=== PATIENT | female | born 1930 | race African-American/Black ===

== ENCOUNTER 2017-05-25 21:14 | Inpatient (IN) | payer MEDICARE, MEDICAID ==
[2017-05-25] MEDS ORDERED: Aspirin 300 MG Suppository ONE (22:05)
[2017-05-25 22:47] LABS: Troponin I 0.083 ng/mL (< 0.028)
[2017-05-25] MEDS ORDERED: Dextrose 5 %-0.45 % NaCl 1,000 ML IV SCH (23:24)
[2017-05-25] MEDS ORDERED: Acetaminophen 650 MG Suppository PR PRN (23:24)
[2017-05-25] MEDS ORDERED: Nitroglycerin 0.4 MG TAB (25 Tab Bottle) SL PRN (23:24)
[2017-05-25] MEDS ORDERED: Bisacodyl 10 MG SUPP PR PRN (23:24)
[2017-05-25] MEDS ORDERED: Labetalol HCl 100 MG/20 ML VIAL SLOW IVP PRN (23:24)
[2017-05-25] MEDS ORDERED: hydrALAZINE 20 MG/ML VIAL SLOW IVP PRN (23:24)
[2017-05-25] MEDS ORDERED: Eucerin (Mineral Oil/Petrolatum,White) 30 gm Jar TOP PRN (23:24)
[2017-05-25] MEDS ORDERED: Multivit, Adult Inj 10 ML VIAL IV SCH (23:24)
[2017-05-25] MEDS ORDERED: Artificial Tears 18 DROP/0.9 ML EA EYE PRN (23:24)
[2017-05-25] MEDS ORDERED: Fleet Enema 133 ML BOT PR PRN (23:24)
[2017-05-25] MEDS ORDERED: Sodium Chloride 0.65% Nasal 44 ML BOT EA NARE PRN (23:24)
[2017-05-25] MEDS ORDERED: Chloraseptic Spray 180 ml Bottle PO PRN (23:24)
[2017-05-25] MEDS ORDERED: Ondansetron HCl/PF 4 MG/2 ML Vial IVP PRN (23:24)
[2017-05-25] MEDS ORDERED: HumaLOG 300 UNITS/3 ML VIAL SC PRN ×2 (23:29)
[2017-05-25] MEDS ORDERED: Dextrose 5% in Water 1,000 ML IV PRN (23:29)
[2017-05-25] MEDS ORDERED: Dextrose 50% Abboject 50 ML SYRINGE SLOW IVP PRN (23:29)
[2017-05-25] MEDS ORDERED: Multivitamins, Adult 10 ML in Dextrose 5 %-0.45 % NaCl 1,000 ML IV SCH (23:59)
[2017-05-26] MEDS: cefTRIAXone\\ROCEPHIN 1 GM in Syringe 10 ML SLOW IVP SCH ×2 (00:10→23:35)
--- NOTE | 2017-05-26 00:10 | HP ---
PRIMARY CARE PHYSICIAN: Dr. Hugo Collado. REASON FOR ADMISSION: Metabolic encephalopathy, urinary tract infection, and dehydration, hyperosmol arity. HISTORY OF PRESENT ILLNESS: An 86-year-old female who lives at home with the family. She has advanc ed dementia for the last 2 weeks. Patient is declining. She was not eating or drinking. She was be coming more and more lethargic. Patient is mostly bed-bound for the last several days; before that, patient was able to ambulate with support only, but the patient was able to feed by herself, but for the last 2 weeks, she is not able to eat or drink enough and she is becoming more and more lethargic and declining. This patient unfortunately cannot provide any history, but patient's medical power of commercial litigation attorney, 2 daughters present who provided most of the history. She was initially evaluated at [facility] where patient was found with hypernatremia , hyperchloremia, leukocytosis, urinary tract infection and she had elevated troponin and that is why she was sent to our emergency room for further evaluation and treatment. PAST MEDICAL HISTORY: Alzheimer's dementia, diabetes type 2, hypertension, chronic physical decondit ioning. PAST SURGICAL HISTORY: Unfortunately, patient is not able to provide any surgical history and family member does not have any clue as well. PAST PSYCHIATRIC HISTORY: No major psychiatric problems other than just dementia. SOCIAL HISTORY: Patient lives at home with family. No history of tobacco, alcohol or illicit drug a buse. FAMILY HISTORY: No strong family history of premature coronary artery disease, stroke or cancer. REVIEW OF SYSTEMS: All review of systems tried to review with the patient, but unable to review at t his point because of advanced dementia and lethargic. ALLERGIES: No known drug allergies. CURRENT HOME MEDICATIONS: Patient is not taking any prescribed or non-prescribed medication at this point. EMERGENCY ROOM COURSE: This patient was given vancomycin, Zosyn, and IV fluid at [facility]. Patient is receiving Levaquin in our emergency room. Patient is also received aspirin 300 mg rectally. PHYSICAL EXAMINATION: VITAL SIGNS: Currently, blood pressure 182/122, pulse 83, respiratory rate 17, temperature 98.7, sat uration 99% on room air, weight 72.6 kilograms. GENERAL: Patient is completely lethargic, alert, oriented x1 only, hypertensive, does not follow the command. HEENT: Normocephalic, atraumatic. Eyes: Pupils are round, reactive to light. Extraocular muscles are intact. ENT: Dry mucous membranes. Poor dentition. No pharyngeal erythema, no exudates. NECK: Supple, no JVD, no meningeal signs of irritation. LUNGS: Clear to auscultation without any rhonchi or rales. CARDIAC: S1, S2 regular without any murmur, no gallop, no rub. ABDOMEN: Soft, bowel sounds present, no tenderness, or grimace noted on deep palpation. No suprapub ic tenderness. No organomegaly, no distention. Bowel sounds present. No peritoneal sign. BACK: No CVA tenderness. No point tenderness. EXTREMITIES: Upper extremity passive movement of all joints are normal. Lower extremity, passive mo vement of all joints are normal. Good distal pulsation. SKIN: No skin rash. HEMATOLOGICAL: No lymphadenopathy. NEUROLOGIC: Patient is only alert, oriented x1. Unable to perform neurological examination because of lethargy and dementia. SIGNIFICANT LABS: Chest x-ray based on my review, no acute cardiopulmonary process. CBC: WBC 15.7, hemoglobin 15.4, platelets 198. BMP: Sodium 150, potassium 4.5, chloride 112, carbon dioxide 25, a nion gap 18, BUN 23, creatinine 0.91, glucose 223, calcium 10.7, lactic acid 3.7. LFT: AST 49, ALT 41, alkaline phosphatase 98, albumin 3.3. TSH 0.81, CK-MB 7.8, troponin 0.091 and then 0.083. Urina lysis, bacteria 4+, and cloudy urine. ASSESSMENT AND PLAN: 1. Acute metabolic encephalopathy likely due to underlying hyperosmolality, hypernatremia, and dehyd ration as well as on top of Alzheimer's dementia or may be related with urinary tract infection. 2. Urinary tract infection. The patient's urinalysis is cloudy. She has leukocytosis. At this poi nt, we will continue to treat her with levofloxacin and Rocephin and we will follow up on culture res ult. 3. Dehydration, likely due to poor p.o. intake. Patient will need hydration with IV fluid and will monitor labs. 4. Hyperosmolality with hypernatremia and hyperchloremia. Patient will be given dextrose with half normal saline at 120 mL per hour and will repeat BMP tomorrow. 5. Elevated troponin, likely due to demand ischemia. We will check total CK level as well to rule o ut any rhabdomyolysis. We will do total of 3 troponin. We will obtain echocardiography. We will mo braulio on telemetry floor. We will continue aspirin 100 mg per rectally. 6. Oropharyngeal dysphagia. This patient is currently not able to take anything by mouth as she is not safe for p.o. intake at this point. We will keep her n.p.o. We will consult Speech Therapy for evaluation. I spoke with the family member about the possible need of PEG tube placement to prevent recurrent problem, but they are going to think about that necessity with the patient. 7. Protein-calorie malnutrition, likely due to poor p.o. intake. Patient will need nutritional supp lement. Eventually, this patient may need a PEG tube placement because of her advanced Alzheimer dem entia. 8. Lactic acidosis, likely due to dehydration and possible urinary tract infection. We will continu e with antibiotic therapy and we will repeat lactic acid level tomorrow. 9. Hypertension. We will continue with nitropatch q.8 hourly if blood pressure is remaining high an d we will use p.r.n. hydralazine and labetalol p.r.n. basis. 10. Deep venous thrombosis prophylaxis. Lovenox 30 mg subcutaneously daily. 11. Gastrointestinal prophylaxis. Pepcid 20 mg IV b.i.d. 12. CODE STATUS. I spoke with the patient's both daughters who are present at bedside in the emerge ncy room and confirmed DNR status. DISPOSITION PLAN: Based on clinical course. We are expecting patient's stay in the hospital more th an 2 midnights. Plan of care discussed with the patient and family member at bedside in the emergenc y room.
[2017-05-26 03:24] LABS: Lactic Acid 2.6 mmol/L (0.5-2.2)
[2017-05-26 03:34] LABS: ALT (SGPT) 37 U/L (8-55); AST (SGOT) 40 U/L (5-34); Albumin 2.7 g/dL (3.4-4.8); Alkaline Phosphatase 79 U/L (40-150); Anion Gap 14 mmol/L (10-20); BUN (Urea Nitrogen) 20 mg/dL (9.8-20.1); Bilirubin, Total 0.5 mg/dL (0.2-1.2); CK (CPK) 311 U/L (29-168); Calc. Creatinine Clearance 43 mL/min (70-130); Calcium 9.7 mg/dL (7.8-10.44); Carbon Dioxide 22 mmol/L (23-31); Chloride 115 mmol/L (98-107); Estimated GFR-MDRD 78; Globulin 2.6 g/dL (2.4-3.5); Glucose 208 mg/dL (83-110); Potassium 4.8 mmol/L (3.5-5.1); Protein, Total 5.3 g/dL (6.0-8.3); Sodium 146 mmol/L (136-145)
[2017-05-26 05:49] LABS: #Lymphocytes 0.9 thou/uL (1.20-3.40); #Monocytes 1.1 thou/uL (0.11-0.59); #Neutrophils 9.9 thou/uL (1.40-6.50); %Basophils 0.2 % (0.0-1.0); %Eosinophils 0.3 % (0.0-10.0); %Lymphocytes 7.4 % (21.0-51.0); %Monocytes 9.4 % (0.0-10.0); %Neutrophils 82.6 % (42.0-75.0); Mean Corpuscular HGB CONC 30.6 g/dL (32.0-36.0); Mean Corpuscular Hemoglobin 28.8 pg (27.0-31.0); Mean Corpuscular Volume 94.2 fl (81.0-99.0); Mean Platelet Volume 8.9 fL (7.4-10.4); Platelet Count 162 thou/uL (130-400); Red Blood Cell (RBC) Count 4.53 mill/uL (4.20-5.40)
[2017-05-26 06:07] LABS: Lactic Acid 2.3 mmol/L (0.5-2.2)
[2017-05-26] MEDS: Nitroglycerin 2% Ointment 1 INCH/1 GM Packet TOP SCH ×3 (06:44→21:15)
[2017-05-26] MEDS: Dextrose 5 %-0.45 % NaCl 1,000 ML IV SCH ×2 (06:48→21:16)
[2017-05-26 07:11] LABS: Folate (Folic Acid) 7.6 ng/mL (7.0-31.4)
[2017-05-26] MEDS: Aspirin 300 MG Suppository PR SCH (10:05)
[2017-05-26] MEDS: Famotidine/PF 20 mg/2ml Vial SLOW IVP SCH ×2 (10:30→21:15)
--- NOTE | 2017-05-26 14:39 | PDOC.PN ---
- Subjective Encounter Start Date: 05/26/17 Encounter Start Time: 14:37 Subjective: daughter at bedside reports that that she is more awake and alert - Objective Resuscitation Status: Resuscitation Status DNR:Do Not Resuscitate MAR Reviewed: Yes Vital Signs & Weight: Vital Signs (12 hours) Temp Pulse Resp BP Pulse Ox 05/26/17 08:00 97.5 F L 62 12 126/67 100 05/26/17 04:00 96.1 F L 63 17 142/81 H 98 Weight Admit Weight 124 lb Weight 124 lb Result Diagrams: 05/26/17 05:35 05/26/17 02:59 Additional Labs: Accuchecks 05/26/17 05/26/17 05/26/17 11:39 05:42 00:35 POC Glucose 179 H 182 H 162 H Microbiology 05/25/17 18:00 Urine Straight Catheter Urine Culture - Preliminary NO GROWTH AT 12 HOURS Laboratory Tests 05/26/17 05:35 Ammonia 18 Phys Exam - Physical Examination Constitutional: NAD easily awaken.will talk non stop but falls back to sleep quickly HEENT: PERRLA, moist MMs, sclera anicteric, oral pharynx no lesions Neck: no nodes, no JVD, supple, full ROM Respiratory: no wheezing, no rales, no rhonchi, clear to auscultation bilateral Cardiovascular: RRR, no significant murmur Gastrointestinal: soft, non-tender, no distention, positive bowel sounds Musculoskeletal: no edema, pulses present Neurological: moves all 4 limbs Psychiatric: normal affect Skin: no rash Dx/Plan (1) Acute metabolic encephalopathy Code(s): G93.41 - METABOLIC ENCEPHALOPATHY Status: Acute Comment: improving (2) UTI (urinary tract infection) Status: Acute Qualifiers: Urinary tract infection type: acute cystitis Hematuria presence: without hematuria Qualified Code(s): N30.00 - Acute cystitis without hematuria (3) Dehydration Code(s): E86.0 - DEHYDRATION Status: Acute (4) Hypernatremia Code(s): E87.0 - HYPEROSMOLALITY AND HYPERNATREMIA Status: Acute (5) CAD (coronary artery disease) Code(s): I25.10 - ATHSCL HEART DISEASE OF [place] CORONARY ARTERY W/O ANG PCTRS Status: Acute (6) HTN (hypertension) Code(s): I10 - ESSENTIAL (PRIMARY) HYPERTENSION Status: Acute (7) Moderate protein-calorie malnutrition Code(s): E44.0 - MODERATE PROTEIN-CALORIE MALNUTRITION Status: Acute - Plan plan discussed w/ family, PT/OT, social work associate, DVT proph w/lovenox, DVT proph w/SCDs cont IVF w D5 1/2 NS.sodium improving.monitor. -: cont empiric ABx. follow urine Cx -: OT,PT.supportive care. HD stable. -: am labs * . Review of Systems - Review of Systems Other: unable to obtain due to dementia and acute illness encephalopathy - Medications/Allergies Allergies/Adverse Reactions: Allergies Allergy/AdvReac Type Severity Reaction Status Date / Time No Known Allergies Allergy Unverified 05/25/17 23:36 Medications: Current Medications Acetaminophen (Tylenol) 650 mg [place] Q4H PRN PRN Reason: Headache/Fever or Pain Artificial Tears (Tears Naturale) 0 drop EA EYE PRN PRN PRN Reason: Dry Eyes Aspirin (Aspirin) 300 mg IL DAILY [facility] Last Admin: 05/26/17 10:05 Dose: Not Given Bisacodyl (Dulcolax) 10 mg IL Q24H PRN PRN Reason: Constipation Dextrose/Water (Dextrose 50%) 25 gm SLOW IVP PRN PRN PRN Reason: Hypoglycemia Enoxaparin Sodium (Lovenox) 30 mg SC 0900 [facility] Famotidine (Pepcid) 20 mg SLOW IVP Q12HR [facility] Glucagon (Glucagon) 1 mg IM PRN PRN PRN Reason: Hypoglycemia Hydralazine HCl (Apresoline) 10 mg SLOW IVP Q4H PRN PRN Reason: Systolic BP > 180 Levofloxacin 500 mg/ Device 100 mls @ 100 mls/hr IVPB Q24HR [facility] Ceftriaxone Sodium 1 gm/ (Syringe) 10 mls @ 120 mls/hr SLOW IVP Q24HR@2359 [facility] Last Admin: 05/26/17 00:10 Dose: 10 mls Dextrose/Water (D5w) 1,000 mls @ 0 mls/hr IV .Q0M PRN; As Directed PRN Reason: Hypoglycemia Dextrose/Sodium Chloride (D5 1/2 Ns) 1,000 mls @ 120 mls/hr IV .Q8H20M [facility] Last Admin: 05/26/17 06:48 Dose: 1,000 mls Insulin Human Lispro (Humalog) 0 units SC .MODERATE SLIDING SC PRN PRN Reason: Moderate Correctional Scale Insulin Human Lispro (Humalog) 0 units SC .BEDTIME SLIDING SC PRN PRN Reason: Bedtime Correctional Scale Labetalol HCl (Normodyne) 20 mg SLOW IVP Q4H PRN PRN Reason: Systolic BP > 180 Mineral Oil/White Petrolatum (Eucerin Cream) 0 gm TOP BIDPRN PRN PRN Reason: Dry Skin Nitroglycerin (Nitrostat) 0.4 mg SL Q5MIN PRN PRN Reason: Chest Pain Nitroglycerin (Nitro-Bid 2% Ointment) 0.5 inch TOP Q8HR [facility] Last Admin: 05/26/17 06:44 Dose: 0.5 inch Ondansetron HCl (Zofran) 4 mg IVP Q6H PRN PRN Reason: Nausea/Vomiting Phenol (Chloraseptic [place] 180 Ml Bot) 0 ml PO PRN PRN PRN Reason: Sore Throat Sodium Biphosphate/Sodium Phosphate (Fleet Enema) 133 ml IL ONE PRN PRN Reason: Constipation Stop: 05/26/17 23:25 Sodium Chloride ([place] Nasal [place] 0.65%) 0 ml EA NARE QIDPRN PRN PRN Reason: Nasal Congestion Sodium Chloride (Flush - Normal Saline) 10 ml IVF Q12HR [facility] Sodium Chloride (Flush - Normal Saline) 10 ml IVF PRN PRN PRN Reason: Saline Flush
[2017-05-26] MEDS: Enoxaparin Sodium 30 MG/0.3 ML SYRINGE SC SCH (15:01)
[2017-05-27] MEDS ORDERED: Acetaminophen 325 MG TAB PO PRN (02:34)
[2017-05-27] MEDS: Dextrose 5 %-0.45 % NaCl 1,000 ML IV SCH ×3 (02:49→17:38)
[2017-05-27] MEDS: Nitroglycerin 2% Ointment 1 INCH/1 GM Packet TOP SCH ×3 (05:19→21:15)
[2017-05-27] MEDS: Famotidine/PF 20 mg/2ml Vial SLOW IVP SCH ×2 (09:19→21:15)
[2017-05-27] MEDS: Aspirin 300 MG Suppository PR SCH (09:19)
[2017-05-27] MEDS: Enoxaparin Sodium 30 MG/0.3 ML SYRINGE SC SCH (09:19)
--- NOTE | 2017-05-27 15:15 | EKG ---
Test Reason : Blood Pressure : / mmHG Vent. Rate : 083 BPM Atrial Rate : 083 BPM P-R Int : 142 ms QRS Dur : 072 ms QT Int : 446 ms P-R-T Axes : 057 -01 028 degrees QTc Int : 524 ms Normal sinus rhythm Nonspecific T wave abnormality Prolonged QT Abnormal ECG Confirmed by GABRIELLA PATEL, GILDA ([id number]), supervising editor trailer REGI SAL ([id number]) on 05/27/2017 3:15:03 PM Referred By: Confirmed By:GILDA QUIROZ MD
--- NOTE | 2017-05-27 16:40 | PDOC.PN ---
- Subjective Encounter Start Date: 05/27/17 Encounter Start Time: 14:45 Subjective: Family reports improved status. patient makes verbal noises in response to -: some questions - Objective Resuscitation Status: Resuscitation Status DNR:Do Not Resuscitate Vital Signs & Weight: Vital Signs (12 hours) Temp Pulse Pulse Pulse Resp BP BP 05/27/17 12:00 59 L 18 05/27/17 08:24 47 L 54 L 114/53 L 120/57 L 05/27/17 08:10 97.1 F L 60 18 05/27/17 08:00 97.6 F 60 18 BP Pulse Ox 05/27/17 12:00 149/81 H 05/27/17 08:24 05/27/17 08:10 95 05/27/17 08:00 112/58 L Weight Admit Weight 124 lb Weight 132 lb I&O: 05/26/17 05/27/17 05/28/17 06:59 06:59 06:59 Intake Total 1740 Balance 1740 Result Diagrams: 05/26/17 05:35 05/26/17 02:59 Additional Labs: Accuchecks 05/27/17 05/27/17 05/27/17 11:30 06:02 00:04 POC Glucose 131 H 156 H 154 H 05/26/17 17:09 POC Glucose 140 H Phys Exam - Physical Examination Constitutional: NAD HEENT: moist MMs, sclera anicteric temporal wasting Neck: supple Respiratory: clear to auscultation bilateral Cardiovascular: RRR Gastrointestinal: soft Musculoskeletal: no edema Neurological: moves all 4 limbs Deviation from normal: dementia and altered Deviation from normal: stage 2 dq ulcer Dx/Plan (1) Acute metabolic encephalopathy Code(s): G93.41 - METABOLIC ENCEPHALOPATHY Status: Acute Comment: improving (2) CAD (coronary artery disease) Code(s): I25.10 - ATHSCL HEART DISEASE OF [place] CORONARY ARTERY W/O ANG PCTRS Status: Acute (3) Dehydration Code(s): E86.0 - DEHYDRATION Status: Acute (4) HTN (hypertension) Code(s): I10 - ESSENTIAL (PRIMARY) HYPERTENSION Status: Acute (5) Hypernatremia Code(s): E87.0 - HYPEROSMOLALITY AND HYPERNATREMIA Status: Acute (6) Moderate protein-calorie malnutrition Code(s): E44.0 - MODERATE PROTEIN-CALORIE MALNUTRITION Status: Acute (7) UTI (urinary tract infection) Status: Acute Qualifiers: Urinary tract infection type: acute cystitis Hematuria presence: without hematuria Qualified Code(s): N30.00 - Acute cystitis without hematuria - Plan cont current plan of care, plan discussed w/ family, continue antibiotics, PT/OT improving * .
[2017-05-28] MEDS: cefTRIAXone\\ROCEPHIN 1 GM in Syringe 10 ML SLOW IVP SCH ×2 (00:03→23:47)
[2017-05-28] MEDS: Dextrose 5 %-0.45 % NaCl 1,000 ML IV SCH ×3 (02:33→18:21)
[2017-05-28 05:34] LABS: #Eosinphils 0.1 thou/uL (0.0-0.7); #Lymphocytes 1.1 thou/uL (1.20-3.40); #Monocytes 0.5 thou/uL (0.11-0.59); #Neutrophils 3.6 thou/uL (1.40-6.50); %Basophils 0.8 % (0.0-1.0); %Eosinophils 1.8 % (0.0-10.0); %Monocytes 9.7 % (0.0-10.0); %Neutrophils 66.6 % (42.0-75.0); Hemoglobin 12.7 g/dL (12.0-16.0); Mean Corpuscular HGB CONC 31.6 g/dL (32.0-36.0); Mean Corpuscular Volume 94.9 fl (81.0-99.0); Mean Platelet Volume 8.8 fL (7.4-10.4); Platelet Count 187 thou/uL (130-400); RBC Distribution Width 11.7 % (11.5-14.5); Red Blood Cell (RBC) Count 4.24 mill/uL (4.20-5.40); White Blood Cell (WBC) Count 5.4 thou/uL (4.8-10.8)
[2017-05-28 05:46] LABS: Anion Gap 11 mmol/L (10-20); BUN (Urea Nitrogen) 6 mg/dL (9.8-20.1); Calc. Creatinine Clearance 58 mL/min (70-130); Calcium 9.3 mg/dL (7.8-10.44); Carbon Dioxide 21 mmol/L (23-31); Chloride 111 mmol/L (98-107); Estimated GFR-MDRD Greater than 90; Glucose 146 mg/dL (83-110); Potassium 3.7 mmol/L (3.5-5.1); Sodium 139 mmol/L (136-145)
[2017-05-28] MEDS: Nitroglycerin 2% Ointment 1 INCH/1 GM Packet TOP SCH ×3 (06:13→21:20)
[2017-05-28] MEDS: Famotidine/PF 20 mg/2ml Vial SLOW IVP SCH ×2 (09:21→20:04)
[2017-05-28] MEDS: Aspirin 300 MG Suppository PR SCH (09:22)
[2017-05-28] MEDS: Enoxaparin Sodium 30 MG/0.3 ML SYRINGE SC SCH (09:22)
--- NOTE | 2017-05-28 12:41 | PDOC.PN ---
- Subjective Encounter Start Date: 05/28/17 Encounter Start Time: 11:00 Subjective: PT EATING WITH BOTH DAUGHTERS AT BEDSIDE. DEMENTED BUT DENIES -: NEW COMPLAINTS. - Objective Resuscitation Status: Resuscitation Status DNR:Do Not Resuscitate MAR Reviewed: Yes Vital Signs & Weight: Vital Signs (12 hours) Temp Pulse Resp BP Pulse Ox 05/28/17 08:00 98.4 F 75 14 136/75 95 05/28/17 04:00 98.1 F 63 20 122/85 97 Weight Admit Weight 124 lb Weight 135 lb I&O: 05/27/17 05/28/17 05/29/17 06:59 06:59 06:59 Intake Total 1740 3360 Balance 1740 3360 Result Diagrams: 05/28/17 05:13 05/28/17 05:13 Additional Labs: Accuchecks 05/28/17 05/28/17 05/28/17 12:08 06:04 00:37 POC Glucose 165 H 130 H 151 H 05/27/17 05/27/17 19:56 17:09 POC Glucose 149 H 128 H Phys Exam - Physical Examination Constitutional: NAD HEENT: PERRLA, moist MMs, sclera anicteric, oral pharynx no lesions TEMPORAL WASTING Neck: supple, full ROM Respiratory: clear to auscultation bilateral Cardiovascular: RRR Gastrointestinal: soft, non-tender Musculoskeletal: no edema Neurological: moves all 4 limbs Deviation from normal: DEMENTED Deviation from normal: DQ ULCER Dx/Plan (1) Acute metabolic encephalopathy Code(s): G93.41 - METABOLIC ENCEPHALOPATHY Status: Acute Comment: improving (2) CAD (coronary artery disease) Code(s): I25.10 - ATHSCL HEART DISEASE OF [place] CORONARY ARTERY W/O ANG PCTRS Status: Chronic (3) Dehydration Code(s): E86.0 - DEHYDRATION Status: Acute (4) HTN (hypertension) Code(s): I10 - ESSENTIAL (PRIMARY) HYPERTENSION Status: Chronic (5) Hypernatremia Code(s): E87.0 - HYPEROSMOLALITY AND HYPERNATREMIA Status: Acute (6) Moderate protein-calorie malnutrition Code(s): E44.0 - MODERATE PROTEIN-CALORIE MALNUTRITION Status: Chronic (7) UTI (urinary tract infection) Status: Acute Qualifiers: Urinary tract infection type: acute cystitis Hematuria presence: without hematuria Qualified Code(s): N30.00 - Acute cystitis without hematuria - Plan cont current plan of care, plan discussed w/ family, continue antibiotics AKD IMPROVED, MENTATION IMPROVED..CONTINUE REGIMEN * .
[2017-05-29] MEDS: Nitroglycerin 2% Ointment 1 INCH/1 GM Packet TOP SCH (05:41)
[2017-05-29] MEDS: Dextrose 5 %-0.45 % NaCl 1,000 ML IV SCH (05:42)
[2017-05-29 06:58] LABS: Anion Gap 10 mmol/L (10-20); BUN (Urea Nitrogen) 4 mg/dL (9.8-20.1); Calc. Creatinine Clearance 55 mL/min (70-130); Calcium 9.2 mg/dL (7.8-10.44); Carbon Dioxide 24 mmol/L (23-31); Chloride 109 mmol/L (98-107); Estimated GFR-MDRD Greater than 90; Glucose 134 mg/dL (83-110); Potassium 3.7 mmol/L (3.5-5.1); Sodium 139 mmol/L (136-145)
[2017-05-29 07:34] LABS: #Eosinphils 0.1 thou/uL (0.0-0.7); #Lymphocytes 1.8 thou/uL (1.20-3.40); #Monocytes 0.6 thou/uL (0.11-0.59); #Neutrophils 2.9 thou/uL (1.40-6.50); %Basophils 0.5 % (0.0-1.0); %Eosinophils 2.3 % (0.0-10.0); %Lymphocytes 32.8 % (21.0-51.0); %Monocytes 10.9 % (0.0-10.0); %Neutrophils 53.4 % (42.0-75.0); Hemoglobin 12.3 g/dL (12.0-16.0); Mean Corpuscular HGB CONC 32.1 g/dL (32.0-36.0); Mean Corpuscular Hemoglobin 29.1 pg (27.0-31.0); Mean Corpuscular Volume 90.5 fl (81.0-99.0); Mean Platelet Volume 8.9 fL (7.4-10.4); Platelet Count 168 thou/uL (130-400); RBC Distribution Width 11.5 % (11.5-14.5); Red Blood Cell (RBC) Count 4.22 mill/uL (4.20-5.40); White Blood Cell (WBC) Count 5.5 thou/uL (4.8-10.8)
[2017-05-29] MEDS: Aspirin 300 MG Suppository PR SCH (08:51)
[2017-05-29] MEDS: Enoxaparin Sodium 30 MG/0.3 ML SYRINGE SC SCH (08:51)
[2017-05-29] MEDS: Famotidine/PF 20 mg/2ml Vial SLOW IVP SCH (08:52)
[2017-05-29] MEDS ORDERED: Amlodipine 10 MG TAB PO SCH ×2 (09:00→16:58)
[2017-05-29 11:44] VITALS: BMI 23.1
--- NOTE | 2017-05-29 14:36 | PDOC.PN ---
- Subjective Encounter Start Date: 05/29/17 Encounter Start Time: 14:34 Subjective: pt eating better per family members and at [facility] w mentation -: having difficulty sleeping in hospital - Objective Resuscitation Status: Resuscitation Status DNR:Do Not Resuscitate MAR Reviewed: Yes Vital Signs & Weight: Vital Signs (12 hours) Temp Pulse Resp BP BP BP Pulse Ox 05/29/17 11:44 97.4 F L 48 L 16 128/60 96 05/29/17 08:36 97.8 F 60 18 148/83 H 96 05/29/17 08:00 97.8 F 60 18 96 05/29/17 04:00 98.6 F 51 L 20 158/98 H 97 Weight Admit Weight 124 lb Weight 135 lb 1.6 oz I&O: 05/28/17 05/29/17 05/30/17 06:59 06:59 06:59 Intake Total 3360 3250 Balance 3360 3250 Result Diagrams: 05/29/17 04:29 05/29/17 04:29 Additional Labs: Accuchecks 05/29/17 05/29/17 05/28/17 12:03 06:21 21:36 POC Glucose 185 H 139 H 131 H 05/28/17 18:35 POC Glucose 142 H Microbiology 05/25/17 18:00 Urine Straight Catheter Urine Culture - Final NO GROWTH AT 36 HOURS 05/25/17 18:35 Venous blood - Right Arm Blood Culture - Preliminary NO GROWTH AT 48 HOURS 05/25/17 18:35 Venous blood - Left Hand Blood Culture - Preliminary NO GROWTH AT 48 HOURS Laboratory Tests 05/25/17 05/26/17 05/28/17 17:30 02:59 05:13 Sodium 150 H 146 H 139 Creatinine 0.84 0.69 05/29/17 04:29 Sodium 139 Creatinine 0.72 Phys Exam - Physical Examination Constitutional: NAD sleeping but easily awakened HEENT: PERRLA, moist MMs, sclera anicteric, oral pharynx no lesions Neck: no JVD Respiratory: no wheezing, clear to auscultation bilateral Cardiovascular: RRR, no significant murmur Gastrointestinal: soft, non-tender, no distention, positive bowel sounds Musculoskeletal: no edema, pulses present Neurological: moves all 4 limbs Psychiatric: normal affect Skin: no rash Dx/Plan (1) Acute metabolic encephalopathy Code(s): G93.41 - METABOLIC ENCEPHALOPATHY Status: Acute Comment: improving (2) UTI (urinary tract infection) Status: Acute Qualifiers: Urinary tract infection type: acute cystitis Hematuria presence: without hematuria Qualified Code(s): N30.00 - Acute cystitis without hematuria (3) Dehydration Code(s): E86.0 - DEHYDRATION Status: Resolved (4) Hypernatremia Code(s): E87.0 - HYPEROSMOLALITY AND HYPERNATREMIA Status: Resolved (5) CAD (coronary artery disease) Code(s): I25.10 - ATHSCL HEART DISEASE OF [place] CORONARY ARTERY W/O ANG PCTRS Status: Chronic (6) HTN (hypertension) Code(s): I10 - ESSENTIAL (PRIMARY) HYPERTENSION Status: Chronic (7) Moderate protein-calorie malnutrition Code(s): E44.0 - MODERATE PROTEIN-CALORIE MALNUTRITION Status: Chronic - Plan plan discussed w/ family, PT/OT, oncology social work, out of bed/ambulate, DVT proph w/SCDs change ABx to PO. DC IVF.encourage Po intake. -: renal Fx has normalizied. discussed w family.they want HH & not SNIF -: will arrange and DC home later today.Hd stable -: Dc Nitro patch.add low dose amlodipine and BB for BP control w OP F/U * . Review of Systems - Review of Systems Other: limited ROS d/t dementia - Medications/Allergies Allergies/Adverse Reactions: Allergies Allergy/AdvReac Type Severity Reaction Status Date / Time No Known Allergies Allergy Unverified 05/25/17 23:36 Medications: Current Medications Acetaminophen (Tylenol) 650 mg PO Q4H PRN PRN Reason: Headache/Fever or Pain Last Admin: 05/27/17 02:47 Dose: 650 mg Amlodipine Besylate (Norvasc) 10 mg PO DAILY [facility] Last Admin: 05/29/17 09:09 Dose: 10 mg Artificial Tears (Tears Naturale) 0 drop EA EYE PRN PRN PRN Reason: Dry Eyes Aspirin (Aspirin) 300 mg [place] DAILY [facility] Last Admin: 05/29/17 08:51 Dose: 300 mg Bisacodyl (Dulcolax) 10 mg [place] Q24H PRN PRN Reason: Constipation Carvedilol (Coreg) 3.125 mg PO BID-[facility] Dextrose/Water (Dextrose 50%) 25 gm SLOW IVP PRN PRN PRN Reason: Hypoglycemia Enoxaparin Sodium (Lovenox) 30 mg SC 0900 [facility] Last Admin: 05/29/17 08:51 Dose: 30 mg Famotidine (Pepcid) 20 mg SLOW IVP Q12HR [facility] Last Admin: 05/29/17 08:52 Dose: 20 mg Glucagon (Glucagon) 1 mg IM PRN PRN PRN Reason: Hypoglycemia Hydralazine HCl (Apresoline) 10 mg SLOW IVP Q4H PRN PRN Reason: Systolic BP > 180 Dextrose/Water (D5w) 1,000 mls @ 0 mls/hr IV .Q0M PRN; As Directed PRN Reason: Hypoglycemia Insulin Human Lispro (Humalog) 0 units SC .MODERATE SLIDING SC PRN PRN Reason: Moderate Correctional Scale Insulin Human Lispro (Humalog) 0 units SC .BEDTIME SLIDING SC PRN PRN Reason: Bedtime Correctional Scale Labetalol HCl (Normodyne) 20 mg SLOW IVP Q4H PRN PRN Reason: Systolic BP > 180 Levofloxacin (Levaquin) 500 mg PO 0600 [facility] Mineral Oil/White Petrolatum (Eucerin Cream) 0 gm TOP BIDPRN PRN PRN Reason: Dry Skin Nitroglycerin (Nitrostat) 0.4 mg SL Q5MIN PRN PRN Reason: Chest Pain Ondansetron HCl (Zofran) 4 mg IVP Q6H PRN PRN Reason: Nausea/Vomiting Phenol (Chloraseptic [place] 180 Ml Bot) 0 ml PO PRN PRN PRN Reason: Sore Throat Sodium Chloride ([place] Nasal [place] 0.65%) 0 ml EA NARE QIDPRN PRN PRN Reason: Nasal Congestion Sodium Chloride (Flush - Normal Saline) 10 ml IVF Q12HR [facility] Last Admin: 05/29/17 08:51 Dose: 10 ml Sodium Chloride (Flush - Normal Saline) 10 ml IVF PRN PRN PRN Reason: Saline Flush
[2017-05-29] MEDS ORDERED: Carvedilol 3.125 MG TAB PO SCH (17:00)
[2017-05-29] MEDS: Famotidine 20 MG TAB PO SCH (21:27)
[2017-05-30] MEDS: Famotidine 20 MG TAB PO SCH (08:23)
[2017-05-30] MEDS: Enoxaparin Sodium 30 MG/0.3 ML SYRINGE SC SCH (08:23)
[2017-05-30] MEDS: Aspirin 300 MG Suppository PR SCH (08:23)
[2017-05-30 08:56] LABS: #Eosinphils 0.1 thou/uL (0.0-0.7); #Lymphocytes 1.5 thou/uL (1.20-3.40); #Monocytes 0.4 thou/uL (0.11-0.59); #Neutrophils 2.2 thou/uL (1.40-6.50); %Basophils 0.9 % (0.0-1.0); %Eosinophils 2.4 % (0.0-10.0); %Lymphocytes 34.6 % (21.0-51.0); Mean Corpuscular HGB CONC 31.9 g/dL (32.0-36.0); Mean Corpuscular Hemoglobin 29.1 pg (27.0-31.0); Mean Corpuscular Volume 91.2 fl (81.0-99.0); Mean Platelet Volume 8.6 fL (7.4-10.4); Platelet Count 224 thou/uL (130-400); RBC Distribution Width 11.6 % (11.5-14.5); Red Blood Cell (RBC) Count 4.14 mill/uL (4.20-5.40); White Blood Cell (WBC) Count 4.3 thou/uL (4.8-10.8)
[2017-05-30 09:12] LABS: Anion Gap 6 mmol/L (10-20); BUN (Urea Nitrogen) 5 mg/dL (9.8-20.1); Calc. Creatinine Clearance 58 mL/min (70-130); Calcium 9.8 mg/dL (7.8-10.44); Carbon Dioxide 30 mmol/L (23-31); Chloride 109 mmol/L (98-107); Estimated GFR-MDRD Greater than 90; Glucose 123 mg/dL (83-110); Potassium 3.4 mmol/L (3.5-5.1); Sodium 142 mmol/L (136-145)
[2017-05-30 12:39] VITALS: BP 108/53; TEMP 97.9
--- NOTE | 2017-05-31 00:59 | DIS ---
DATE OF ADMISSION: 05/25/2017 DATE OF DISCHARGE: 05/30/2017 CONDITION AT THE TIME OF DISCHARGE: Stable and improved. DISCHARGE DISPOSITION: [facility] bed. DISCHARGE DIAGNOSES: 1. Dehydration leading to hypernatremia and acute renal insufficiency. 2. Metabolic encephalopathy. 3. Underlying dementia. 4. Urinary tract infection. 5. Coronary artery disease. 6. Hypertension. 7. Moderate protein-calorie malnutrition. DISCHARGE MEDICATIONS: Florastor 250 mg daily, Megace 400 mg daily, levofloxacin 500 mg daily, Coreg 3.125 mg p.o. b.i.d., amlodipine 10 mg daily. PROCEDURES DONE: In the hospital, transthoracic echocardiogram which shows EF of 60%-65% and diastol ic dysfunction. CONSULTATIONS: None. HISTORY OF PRESENT ILLNESS: Ms. Hernandez is a pleasant 86-year-old female with past medical history of hypertension, coronary artery disease, Alzheimer's, diabetes, and physical deconditioning, who presen marcus to the emergency room with complaints of lethargy, altered mental status, and weakness. She was found to have elevated sodium of 150 and creatinine of 0.91, with a BUN of 23 and lactic acid of 3.7. Urinalysis was consistent with UTI with cloudy urine and +4 bacteria. She was admitted for acute m etabolic encephalopathy likely secondary to hyperosmolality as well as hypernatremia, dehydration, an d urinary tract infection. Please see admission history and physical for further details. She was s tarted on IV fluids and empiric IV antibiotic and urine was sent for culture. HOSPITAL COURSE: The patient did improve with the above-mentioned interventions. Urine and blood cu ltures were obtained and both were negative. Eventually, the patient's electrolyte abnormalities imp roved. Her sodium returned back to 142 and a creatinine returned back to 0.69. Lactic acid downtren ded to 2.3. Her vitamin B12 and folic acid levels were also checked and they were normal or on the h igher side. Ammonia level was checked, which was 18. Liver enzymes normal. By the time of discharge, she was back to her baseline self. [facility], which was arranged for them. She was seen and examined prior to discharge. PHYSICAL EXAMINATION: VITAL SIGNS: In the morning include temperature 97.3, pulse anywhere from 58-71, blood pressure is 9 9/52, saturating 99% on room air. GENERAL: No acute distress, she is lying comfortably in bed. She awakes with her when you called he r name and follow simple commands, but she was not able to answer any questions with specificity. Sh e is otherwise very pleasant and does not appear to be in acute distress. CHEST: Clear to auscultation. HEART: Rate and rhythm is regular. NEUROLOGIC: Limited because of patient's participation, but no focal deficits. Discharge plan was discussed with the patient's daughter who verbalized understanding. She was start ed on carvedilol and Norvasc for uncontrolled hypertension. She was not supposed to readily taking a ny medications at home. These would further need to be adjusted based on her blood pressure response . Total time spent 35 minutes.
== END 2017-05-30 15:14 | disposition swing bed (61) | DRG 640 ==
LOC: ERS 21:14 → 2NO 21:42
PROVIDERS: ADMIT Internal Medicine; ATTEND Internal Medicine
DX: E86.0 Dehydration (principal); G93.41 Metabolic encephalopathy; E87.0 Hyperosmolality and hypernatremia; E44.0 Moderate protein-calorie malnutrition; E87.2 Acidosis; R13.12 Dysphagia, oropharyngeal phase; I24.8 Other forms of acute ischemic heart disease; N30.00 Acute cystitis without hematuria; M62.82 Rhabdomyolysis; G30.9 Alzheimer's disease, unspecified; F02.80 Dementia in other diseases classified elsewhere, unspecified severity, without behavioral disturbance, psychotic disturbance, mood disturbance, and anxiety; E87.8 Other disorders of electrolyte and fluid balance, not elsewhere classified; Z74.01 Bed confinement status; E11.9 Type 2 diabetes mellitus without complications; I10 Essential (primary) hypertension; Z68.23 Body mass index [BMI] 23.0-23.9, adult; N28.9 Disorder of kidney and ureter, unspecified; I25.10 Atherosclerotic heart disease of native coronary artery without angina pectoris
CPT/HCPCS: 36415; 36416; 80048; 80053; 82140; 82550; 82607; 82746; 83605; 85025; 93005; 93306; 96365; A4216; G8978-GP-CN; G8979-GP-CL; G8987-GO-CM; G8988-GO-CJ; G8996-GN-CJ; G8997-GN-CJ; J0696; J1650; J1956; J7042; S0028